=== PATIENT | female | born 1960 | race Caucasian/White ===

== ENCOUNTER → 2018-07-18 | Day surgery (SDC) | payer OTHER ==
[~2018-07-18] MED LIST: ALTACE5 MG PO; ASPIR 8181 MG PO; FORTAMET500 MG PO; LIPITO PO; NAPROXEN SODIU550 MG PO; SYNTH PO
== END | disposition home or self-care (01) ==
LOC: ADM 07-14 09:15 → CIR.AMB 06:00
DX: N84.0 Polyp of corpus uteri (principal); N95.0 Postmenopausal bleeding